=== PATIENT | male | born 1940 | race Caucasian/White ===

== ENCOUNTER 2019-06-13 18:56 | Inpatient (IN) ==
--- NOTE | 2019-06-13 19:29 | Emergency Department Note ---
Extremity Problem HPI - General Chief complaint: Extremity Problem,Nontraumatic Time Seen by Provider: 06/13/19 19:10 Source: patient Mode of arrival: ambulatory Limitations: no limitations - History of Present Illness HPI Narrative: 79-year-old male with a 2-day history of swelling in bilateral legs. He has not been able to urinate well over the last 2 days either-this is gradually been getting worse over the last month. No shortness of breath or fever. Denies CHF history but notes that he does have kidney issues-he sees nephrology here at [facility] He also complains of difficulty swallowing-he was able to eat a hamburger today but it hurts to swallow. He does not vomit anything up and is able to swallow both liquids and solids after chewing. However it does hurt significantly and so he has reduced his intake He fell on his way to the room and has a small skin tear on his left elbow He was seen a week ago on 06/07/[address] narvaez. He has not made an appoi ntment yet with Dr. Marie for his cervical spine stenosis - Related Data Home Medications Medication Instructions Recorded Confirmed amlodipine 5 mg tablet 5 mg PO QDAY 01/23/19 06/13/19 furosemide 20 mg tablet 40 mg PO QDAY 01/23/19 06/13/19 RX: Amiodarone HCl [Pacerone] 100 mg PO ONCE 06/13/19 06/13/19 Previous Rx's Medication Instructions Recorded cholecalciferol (vitamin D3) 2,000 4,000 unit PO QDAY #90 cap 06/04/18 unit capsule warfarin 4 mg tablet 4 mg PO QDAY #90 tab 06/04/18 atorvastatin 10 mg tablet 10 mg PO QDAY #90 tab 06/14/18 doxazosin 1 mg tablet 1 mg PO QHS #90 tab 06/14/18 losartan 25 mg tablet 25 mg PO QDAY #90 tab 06/14/18 Cyclobenzaprine [Flexeril] 10 mg PO TID #30 tab 06/07/19 oxyCODONE HCL [Roxicodone] 5 mg PO Q4HP PRN #30 tab 06/07/19 Allergies Allergy/AdvReac Type Severity Reaction Status Date / Time No Known Drug Allergies Allergy Verified 04/25/19 08:56 Review of Systems All systems ED: reviewed and negative except as stated. Past Medical History - Past Medical History Attestation: Yes: The following information was validated with the patient. [facility] Narrative: Family History (Last Reviewed 04/25/19 @ 09:41 by ROMEO Rodriguez) Mother Cerebrovascular accident Diabetes mellitus Arthritis Essential hypertension son Acute myocardial infarction Medical History (Last Reviewed 04/25/19 @ 09:41 by ROMEO Rodriguez) Localized edema due to fluid overload (Chronic) Gout due to renal impairment (Chronic) Vitamin D deficiency (Chronic) Secondary hyperparathyroidism of renal origin (Chronic) Anemia in stage 3 chronic kidney disease (Chronic) Benign hypertension with CKD (chronic kidney disease) stage III (Chronic) CKD (chronic kidney disease) stage 3, GFR 30-59 ml/min (Chronic) Chronic diarrhea of unknown origin (Chronic) Dyspepsia (Chronic) Atrial fibrillation by electrocardiography (Chronic) Secondary hyperparathyroidism (Chronic) Retinal edema (Chronic) History of tobacco use (Chronic) Thrombocytopenia (Chronic) Seborrheic keratosis (Chronic) Pseudophakia (Chronic) Proteinuria (Chronic) Myasthenia gravis without (acute) exacerbation (Chronic) Malignant neoplasm of skin (Chronic) Lentigo (Chronic) Hypertension, essential (Chronic) Hyperlipidemia (Chronic) Emphysema lung (Chronic) Duodenal ulcer (Chronic) Constipation (Chronic) Bradycardia (Chronic) Anemia (Chronic) Actinic keratosis (Chronic) Acute kidney injury (Resolved) Pulmonary nodule (Resolved) Past Surgical History (Last Reviewed 04/25/19 @ 09:41 by ROMEO Rodriguez) Hx of thymectomy (Acute) Hx of cataract surgery (Acute) Hx of colonoscopy (Acute) Medical history: Reports: atrial fibrillation, renal disease, other (bradycard ia) Psychiatric history: Denies: anxiety, depression Surgical history ED: Reports: other (thymus removed) - Social History smoking status: Former smoker Alcohol use: Reports: None Drug use: Reports: none. Denies: marijuana Physical Exam Gross hearing loss is noted. Conjunctive are clear sclerae white anicteric. No nasal discharge or congestion. Oropharynx is pink with dry buccal mucosa. Posterior pharynx is clear. Neck is supple without lymphadenopathy thyromegaly. Heart is regular rate and rhythm on auscultation. I do not hear a significant murmur. Lungs are basically clear to auscultation bilaterally as well. There is no respiratory distress I do not hear any wheezing rales or rhonchi. Abdomen soft mildly tender in the epigastric area as well as the periumbilical area. No peritoneal signs or guarding. He is got +2 edema to bilateral knees. He is alert oriented able to answer questions appropriately-there may be some short- term memory deficit as his son often supplements his history Small skin tear perhaps 1 cm x 1 cm at the left elbow bandaged. Does not require repair Limitations: no limitations Course Vital Signs Temperature 97.7 F 06/13/19 19:02 Pulse Rate 66 06/13/19 19:02 Respiratory Rate 16 06/13/19 19:02 Blood Pressure 95/53 06/13/19 19:02 Pulse Oximetry (%) 93 06/13/19 19:02 Temperature 98.2 F 06/13/19 22:44 Pulse Rate 65 06/13/19 22:44 Respiratory Rate 16 06/13/19 22:44 Blood Pressure 126/81 06/13/19 22:44 Pulse Oximetry (%) 98 06/13/19 22:44 Extremity Problem, Nontraumati - Lab Data Lab results reviewed: Yes I reviewed the patient's lab results. Result diagrams: 06/13/19 19:34 06/13/19 19:34 Lab Results 06/13/19 06/13/19 06/13/19 Range/Units 19:34 19:34 19:34 WBC 7.9 (4.5-11.0) K/mcL RBC 3.69 L (4.50-5.90) M/mcL Hgb 11.4 L (13.5-16.5) g/dL Hct 33.7 L (41.0-55.0) % POC Hct 33.0 L (41.0-55.0) % MCV 91.3 (80.0-100.0) fL MCH 31.0 (26.0-34.0) pg MCHC 33.9 (31.0-36.0) g/dL RDW 13.1 (11.5-14.5) % Plt Count 236 (140-440) K/mcL MPV 8.6 (7.4-10.4) fL Gran % 76.9 (38.0-78.0) % Lymph % (Auto) 10.6 L (15.5-49.0) % Jerauld % (Auto) 9.0 (1.0-12.0) % Eos % (Auto) 3.3 (0.0-7.0) % Baso % (Auto) 0.2 (0.0-2.0) % Gran # 6.1 (1.8-8.0) K/mcL Lymph # (Auto) 0.8 L (1.5-4.8) K/mcL Jerauld # (Auto) 0.7 (0.1-0.9) K/mcL Eos # (Auto) 0.3 (0.0-0.7) K/mcL Baso # (Auto) 0 (0.0-0.3) K/mcL POC Sodium 134 (133-145) mmol/L Sodium 132 L (133-145) mmol/L POC Potassium 3.7 (3.3-5.1) mmol/L Potassium 3.7 (3.3-5.1) mmol/L POC Chloride 98 (96-108) mmol/L Chloride 93 L (96-108) mmol/L Carbon Dioxide 19 L (22-30) mmol/L POC Total CO2 21 L (22-30) mmol/L Anion Gap 20.0 H (8-16) POC BUN 121 H* (8-23) mg/dl BUN 107 H* (8-23) mg/dl Creatinine 4.4 H (0.7-1.2) mg/dl POC Creatinine 5.1 H (0.7-1.2) mg/dl GFR Calculation 12 Glucose 109 H (70-105) mg/dL POC Glucose 113 H (70-105) mg/dL Calcium 8.6 (8.6-10.4) mg/dl POC WB Ioniz Calcium 1.10 L (1.16-1.32) mmol/L Magnesium 2.7 H (1.6-2.5) mg/dL Total Bilirubin 0.4 (0.0-1.0) mg/dL AST 30 (0-37) U/l ALT 55 H (0-40) U/l Alkaline Phosphatase 71 (39-117) U/L Troponin T 0.06 H* (0-0.03) ng/ml NT-Pro-B Natriuret Pep 464.7 H (0-450) pg/ml Total Protein 7.3 (5.9-8.4) gm/dL Albumin 3.5 (3.2-5.2) gm/dL Globulin 3.8 H (2.2-3.7) gm/dL Albumin/Globulin Ratio 0.9 L (1.0-2.3) Lipase 12 (7-60) U/L Urine Color Urine Appearance Urine pH (5.0-9.0) Ur Specific Benton (1.000-1.035) Urine Protein (NEG) mg/dL Urine Glucose (UA) (NEG) mg/dL Urine Ketones (NEG) mg/dL Urine Occult Blood (<0.03) mg/dL Urine Nitrate (NEG) Urine Bilirubin (NEG) mg/dL Urine Urobilinogen (NEG) mg/dL Ur Leukocyte Esterase (NEG) /uL 06/13/19 Range/Units 22:00 WBC (4.5-11.0) K/mcL RBC (4.50-5.90) M/mcL Hgb (13.5-16.5) g/dL Hct (41.0-55.0) % POC Hct (41.0-55.0) % MCV (80.0-100.0) fL MCH (26.0-34.0) pg MCHC (31.0-36.0) g/dL RDW (11.5-14.5) % Plt Count (140-440) K/mcL MPV (7.4-10.4) fL Gran % (38.0-78.0) % Lymph % (Auto) (15.5-49.0) % Jerauld % (Auto) (1.0-12.0) % Eos % (Auto) (0.0-7.0) % Baso % (Auto) (0.0-2.0) % Gran # (1.8-8.0) K/mcL Lymph # (Auto) (1.5-4.8) K/mcL Jerauld # (Auto) (0.1-0.9) K/mcL Eos # (Auto) (0.0-0.7) K/mcL Baso # (Auto) (0.0-0.3) K/mcL POC Sodium (133-145) mmol/L Sodium (133-145) mmol/L POC Potassium (3.3-5.1) mmol/L Potassium (3.3-5.1) mmol/L POC Chloride (96-108) mmol/L Chloride (96-108) mmol/L Carbon Dioxide (22-30) mmol/L POC Total CO2 (22-30) mmol/L Anion Gap (8-16) POC BUN (8-23) mg/dl BUN (8-23) mg/dl Creatinine (0.7-1.2) mg/dl POC Creatinine (0.7-1.2) mg/dl GFR Calculation Glucose (70-105) mg/dL POC Glucose (70-105) mg/dL Calcium (8.6-10.4) mg/dl POC WB Ioniz Calcium (1.16-1.32) mmol/L Magnesium (1.6-2.5) mg/dL Total Bilirubin (0.0-1.0) mg/dL AST (0-37) U/l ALT (0-40) U/l Alkaline Phosphatase (39-117) U/L Troponin T (0-0.03) ng/ml NT-Pro-B Natriuret Pep (0-450) pg/ml Total Protein (5.9-8.4) gm/dL Albumin (3.2-5.2) gm/dL Globulin (2.2-3.7) gm/dL Albumin/Globulin Ratio (1.0-2.3) Lipase (7-60) U/L Urine Color Yellow Urine Appearance Clear Urine pH 5.0 (5.0-9.0) Ur Specific Benton 1.014 (1.000-1.035) Urine Protein Neg (NEG) mg/dL Urine Glucose (UA) Negative (NEG) mg/dL Urine Ketones Neg (NEG) mg/dL Urine Occult Blood Neg (<0.03) mg/dL Urine Nitrate Neg (NEG) Urine Bilirubin Neg (NEG) mg/dL Urine Urobilinogen Neg (NEG) mg/dL Ur Leukocyte Esterase Neg (NEG) /uL - Radiology Data Radiology results reviewed: Yes I reviewed the patient's radiology results. Bladder scan shows [address] scan the abdomen pelvis shows prostatomegaly but no other significant abno rmalities Disposition Pt seen by DOG SITTER/PA only: No Clinical Impression: Prerenal acute renal failure Skin tear of elbow without complication Qualifiers: Encounter type: initial encounter Laterality: left Qualified Code(s): S51.012A - Laceration without foreign body of left elbow, initial encounter Dysphagia Qualifiers: Dysphagia type: unspecified Qualified Code(s): R13.10 - Dysphagia, unspecified Summary: New onset dysphagia over the last month as well as fluid overload in the context of chronic kidney disease. Fluid overload does appear to be mechanical as his bladder is almost 2000 mL in it. We will place a Layne and get a CT of the chest abdomen and pelvis without contrast in light of his chronic kidney disease. This will hopefully show a cause for his dysphagia and urinary retention plus give us a sense of what is going on with his kidneys. Laboratory ordered as well. Laboratory shows new onset renal failure, likely prerenal. Electrolytes do not require dialysis at this time. CT scan does not show cause for dysphasia but prostatomegaly is seen which is likely the cause of his renal failure. Discussed the case with Dr. Orozco, call center rn on-call who agreed to accept the patient in consult. I then discussed case with Dr. Corey, hospitalist who agreed to accept the patient for further care and evaluation in the hospital Disposition: Xfer As Inpt ([facility]) Condition: Fair
[2019-06-13 19:58] LABS: POC Blood Urea Nitrogen 121 mg/dl (8-23); POC CO2 21 mmol/L (22-30); POC Chloride 98 mmol/L (96-108); POC Creatinine 5.1 mg/dl (0.7-1.2); POC Glucose, Random 113 mg/dL (70-105); POC Potassium 3.7 mmol/L (3.3-5.1); POC Sodium 134 mmol/L (133-145)
[2019-06-13 20:46] LABS: Basophils # (Auto) 0 K/mcL (0.0-0.3); Basophils % (Auto) 0.2 % (0.0-2.0); Eosinophils # (Auto) 0.3 K/mcL (0.0-0.7); Eosinophils % (Auto) 3.3 % (0.0-7.0); Granulocytes % (Auto) 76.9 % (38.0-78.0); Hematocrit 33.7 % (41.0-55.0); Hemoglobin 11.4 g/dL (13.5-16.5); Lymphocytes # (Auto) 0.8 K/mcL (1.5-4.8); Lymphocytes % (Auto) 10.6 % (15.5-49.0); Mean Cell Volume 91.3 fL (80.0-100.0); Mean Corpuscular HGB Conc 33.9 g/dL (31.0-36.0); Mean Platelet Volume 8.6 fL (7.4-10.4); Monocytes # (Auto) 0.7 K/mcL (0.1-0.9); Platelet Count 236 K/mcL (140-440); RBC 3.69 M/mcL (4.50-5.90); Red Cell Distribution Width 13.1 % (11.5-14.5); WBC 7.9 K/mcL (4.5-11.0)
[2019-06-13 21:18] LABS: ALT/SGPT 55 U/l (0-40); AST/SGOT 30 U/l (0-37); Albumin 3.5 gm/dL (3.2-5.2); Albumin/Globulin Ratio 0.9 (1.0-2.3); Alkaline Phosphatase 71 U/L (39-117); Bilirubin,Total 0.4 mg/dL (0.0-1.0); Blood Urea Nitrogen 107 mg/dl (8-23); Calcium 8.6 mg/dl (8.6-10.4); Carbon Dioxide 19 mmol/L (22-30); Chloride 93 mmol/L (96-108); Globulin 3.8 gm/dL (2.2-3.7); Glomerular Filtration Rate 12; Glucose 109 mg/dL (70-105); proBNP 464.7 pg/ml (0-450)
--- NOTE | 2019-06-13 22:23 | Internal Med History&Physical ---
Medical - H&P: [facility] Patient information: Note initiated : 06/13/19 at 10:20 pm Service Date, if different from initiated Date: [] Patient: Eliseo Fairchild 79 y/o M admitted on for Swelling in legs. Chief Complaint: [] Chief complaint: Lower extremity swelling weakness History of present illness: Mr. Fairchild is a 79 year old M with a known history of chronic kidney disease/atrial fibrillation on anticoagulation presents to the ER with 5 days onset of inability to urinate along with associated nausea weight gain and lower extremity swelling. Patient endorses to a feeling of abdominal fullness and has not able to void over the last 48 hours. Symptoms has been progressing over the last month. Patient denies abdominal pain, fever or chills or bloody urine. He denies weight loss. Subsequently presents to the ER. Initial work-up was consistent with acute renal failure with a creatinine 4.4 and a BUN of 1 21. Nephrology was consulted excessively hospitalist service was requested for admission. . He denies active distress. Layne's catheter was placed With over 1000 cc urine output. At the time of evaluation patient is alert and oriented, he was able to answer most of the question and endorsed history as above. He denies recent urological procedure. He denies changes in medications. He denies NSAID intake Review of systems A 10 point review of system was performed and is negative except as discussed above Medical - H&P: PMH Medical history: Localized edema due to fluid overload (Chronic) Gout due to renal impairment (Chronic) Vitamin D deficiency (Chronic) Secondary hyperparathyroidism of renal origin (Chronic) Anemia in stage 3 chronic kidney disease (Chronic) Benign hypertension with CKD (chronic kidney disease) stage III (Chronic) CKD (chronic kidney disease) stage 3, GFR 30-59 ml/min (Chronic) Chronic diarrhea of unknown origin (Chronic) Dyspepsia (Chronic) Atrial fibrillation by electrocardiography (Chronic) Secondary hyperparathyroidism (Chronic) Retinal edema (Chronic) Seen by retinal speclialist, who wants a sleep study to ensure that this is not contributing factor to the retinal edema. Sleep study done and is negative. Will fax copy to his office. History of tobacco use (Chronic) Thrombocytopenia (Chronic) 11/04/14 Seborrheic keratosis (Chronic) 10/07/14 Pseudophakia (Chronic) 01/02/15 Bouterse Proteinuria (Chronic) 11/04/14 Myasthenia gravis without (acute) exacerbation (Chronic) 11/04/14 h/o same, s/p thymectomy Malignant neoplasm of skin (Chronic) Lentigo (Chronic) 10/07/14 Benign Hypertension, essential (Chronic) Hyperlipidemia (Chronic) Emphysema lung (Chronic) noted on ct done in 05/22 Duodenal ulcer (Chronic) 1995 Constipation (Chronic) 12/11/2013 Bradycardia (Chronic) Anemia (Chronic) 01/14/15- Honorio Actinic keratosis (Chronic) 10/07/2014 Acute kidney injury (Resolved) Due to poor water intake, vs HCTZ and losartan use. Hold HCTZ and losartan for now, recheck blood in 2 weeks, rtc in 3 weeks. Pulmonary nodule (Resolved) resolved on ct 01/22 Surgical History Hx of thymectomy (Acute) 1994 Hx of cataract surgery (Acute) 11/19/14-Right Eye Hx of colonoscopy (Acute) 2013- Dr. Denton Family History Mother Cerebrovascular accident Diabetes mellitus Arthritis Essential hypertension son Acute myocardial infarction Social History marital status: smoking status: Former smoker quit date: 10/09/03 pack-years: 10 alcohol intake frequency: does not drink substance use type: does not use additional history: Patient states chewed 1/4 can/day for 20 years. Quit chewing tobacco 2005 Medical - H&P: Meds Home Medications Medication Instructions Recorded Confirmed Type cholecalciferol (vitamin D3) 2,000 4,000 unit PO QDAY #90 cap 06/04/18 06/13/19 Rx unit capsule warfarin 4 mg tablet 4 mg PO QDAY #90 tab 06/04/18 06/13/19 Rx atorvastatin 10 mg tablet 10 mg PO QDAY #90 tab 06/14/18 06/13/19 Rx doxazosin 1 mg tablet 1 mg PO QHS #90 tab 06/14/18 06/13/19 Rx losartan 25 mg tablet 25 mg PO QDAY #90 tab 06/14/18 06/13/19 Rx amlodipine 5 mg tablet 5 mg PO QDAY 01/23/19 06/13/19 History furosemide 20 mg tablet 40 mg PO QDAY 01/23/19 06/13/19 History Cyclobenzaprine [Flexeril] 10 mg PO TID #30 tab 06/07/19 06/13/19 Rx oxyCODONE HCL [Roxicodone] 5 mg PO Q4HP PRN #30 tab 06/07/19 06/13/19 Rx Amiodarone HCl [Pacerone] 100 mg PO [facility] 06/13/19 06/14/19 History Allergies Allergy/AdvReac Type Severity Reaction Status Date / Time No Known Drug Allergies Allergy Verified 04/25/19 08:56 Medical - H&P: Exam - Constitutional Vitals: Temp Pulse Resp BP Pulse Ox 97.7 F 65 16 119/62 93 06/13/19 19:02 06/13/19 21:31 06/13/19 19:02 06/13/19 21:31 06/13/19 21:31 General appearance: no acute distress Exam: Alert and oriented Head normocephalic Neck no lymphadenopathy oral cavity dry no ear nose discharge S1-S2 occasionally irregular rhythm Chest clear to auscultation bilaterally Abdomen soft nontender Lower extremity 2+ pitting edema No joint swelling erythema Skin no suspicious lesion Psych alert cooperative exam neuro nonfocal Medical - H&P: Reslt - Labs CBC & Chem 7: 06/14/19 03:25 06/14/19 03:25 Labs: Short CBC 06/13/19 Range/Units 19:34 WBC 7.9 (4.5-11.0) K/mcL Hgb 11.4 L (13.5-16.5) g/dL Hct 33.7 L (41.0-55.0) % Plt Count 236 (140-440) K/mcL BMP 06/13/19 19:34 Sodium 132 L Potassium 3.7 Chloride 93 L Carbon Dioxide 19 L BUN 107 H* Creatinine 4.4 H Glucose 109 H Calcium 8.6 Cardiac Enzymes 06/13/19 Range/Units 19:34 Troponin T 0.06 H* (0-0.03) ng/ml Liver Function 06/13/19 Range/Units 19:34 Total Bilirubin 0.4 (0.0-1.0) mg/dL AST 30 (0-37) U/l ALT 55 H (0-40) U/l Alkaline Phosphatase 71 (39-117) U/L Albumin 3.5 (3.2-5.2) gm/dL Medical - H&P: A/P (1) Acute renal failure Current visit: Yes Status: Acute * Acute renal failure-secondary to obstructive uropathy. Layne's catheter/renal ultrasound/UA/nephrology consult. Creatinine 4.5 with BUN 121 * Obstructive uropathy-Layne's catheter placement. Likely BPH. Will need urology consult on discharge. * Volume overload secondary to obstructive uropathy-will likely correct with postobstructive diuresis. Nephrology consulted. * Atrial fibrillation currently on home dose amiodarone * Anticoagulation on Coumadin. INR therapeutic * Hypertension continue amlodipine/doxazosin, hold losartan in light of SIMON * Chronic pain on oxycodone/cyclobenzaprine * DNR * prophylaxis on Coumadin Plan * Inpatient telemetry admit * Layne's catheter * Nephrology consult * Coumadin dosing based on INR * Pre-existing medical condition management on home meds as above * Anticipate minimum of 2 midnight hospitalization
[2019-06-13] MEDS ORDERED: ACETAMINOPHEN 325 MG TABLET PO PRN (22:54)
[2019-06-13] MEDS ORDERED: ONDANSETRON 4 MG/2 ML VIAL IV PRN (22:54)
[2019-06-13] MEDS ORDERED: AMIODARONE HCL 100 MG PO SCH (22:54)
[2019-06-13] MEDS ORDERED: MELATONIN 3 MG TABLET PO PRN (22:54)
[2019-06-13] MEDS ORDERED: oxyCODONE HCL 5 MG TABLET PO PRN (22:54)
[2019-06-13 22:58] LABS: Appearance,Urine CLEAR; Bilirubin,Urine NEG (NEG); Color,Urine YELLOW; Glucose,Urine (UA) NEGATIVE (NEG); Ketones,Urine NEG (NEG); Leukocyte Esterase,Urine NEG /uL (NEG); Nitrate,Urine NEG (NEG); Protein,Urine NEG (NEG); Specific Gravity,Urine 1.014 (1.000-1.035); Urine Blood NEG mg/dL (<0.03); Urobilinogen,Urine NEG (NEG)
--- NOTE | 2019-06-14 05:29 | Cat Scan Report ---
CLINICAL INFORMATION: Abdominal pain and urinary retention. History of CHF COMPARISON: Chest CT 07/04/2018 TECHNIQUE: Enteric contrast was utilized. 80 cc of Isovue-[id number] were injected intravenously, and 50 seconds later 2.5 mm helical slices were obtained from the lung apices through the subtrochanteric regions of the femurs. Following reconstruction, 2.5 mm sagittal, coronal and axial reformatted images were processed and reviewed at multiple windows and levels. 7 mm MIP reconstructions were obtained through the lungs to optimize nodule detection.The exam was performed using radiation dose optimization techniques including, but not limited to, automated exposure control, adjustment of the mA and/or kV according to patient size and use of iterative reconstruction technique. FINDINGS: Pulmonary parenchymal windows show moderate centrilobular emphysematous changes featuring chronic bronchitis (elevated lung volumes and mild wall thickening /dilatation of the bronchi) and multiple bullae - predominantly in the upper lobes. There is moderate linear scarring in the left lower lobe - new from the chest CT over one year prior. There are no nodules or diffuse/regional infiltrates. Subsegmental atelectasis in the distal medial and posterior basilar segments of both lower lobes appreciated. There are no effusions. Mediastinal windows show the heart is normal in size are scattered calcific plaque in the coronary arteries. The noncontrasted thoracic aorta is normal. The central pulmonary arteries are mildly enlarged: the main pulmonary diameter is 3.8 cm. Findings compatible with pulmonary hypertension related to COPD. There is no adenopathy in the mediastinal hilar or axillary regions. Thyroid is unremarkable. Abdominal images show the noncontrasted gallbladder and bile ducts, liver, both adrenal glands, spleen, pancreas and aorta to be normal in size configuration and attenuation without focal lesion. 20 mm simple cyst projecting from the anterior mid right kidney is unchanged from CT one year prior 07/04/2018. There is 10 mm simple cyst in the inferior pole the right kidney which was not included on the previous study. There is no free air, free fluid or adenopathy. Pelvic images show mild prostate enlargement. Layne catheter is properly positioned within the urinary bladder which is decompressed. No gross bladder abnormality. Few sigmoid diverticuli noted, but no evidence of diverticulitis. The remainder of the colon, appendix, small bowel and stomach are normal. Bone windows show no focal osseous abnormalities. There are degenerative changes in lower lumbar spine IMPRESSION: 1. Moderate centrilobular emphysema. Scarring in the left lower lobe and subsegmental atelectasis in the medial and posterior basilar segments of both lower lobes 2. Mild central pulmonary artery enlargement compatible with pulmonary hypertension related to COPD 3. Mild prostate enlargement. Layne catheter is properly positioned with decompression of the urinary bladder Interpreted and Authenticated by: Aubrey Sibley 06/14/19
[2019-06-14] MEDS: 0.9 % SODIUM CHLORIDE 10 ML SYRINGE IV SCH ×3 (05:31→21:42)
[2019-06-14 05:49] LABS: Hematocrit 32.7 % (41.0-55.0); Hemoglobin 11.1 g/dL (13.5-16.5); Mean Cell Volume 91.9 fL (80.0-100.0); Mean Platelet Volume 8.5 fL (7.4-10.4); Platelet Count 210 K/mcL (140-440); RBC 3.56 M/mcL (4.50-5.90); Red Cell Distribution Width 12.7 % (11.5-14.5); WBC 7.1 K/mcL (4.5-11.0)
--- NOTE | 2019-06-14 05:53 | Ultrasound Report ---
CLINICAL INFORMATION: Acute renal failure COMPARISON: Abdominal ultrasound 04/17/2018 abdominal MRI 09/17/2018 FINDINGS: Both kidneys are normal in size, position and configuration: The right is 10.6 x 5 cm and the left is 10 x 5 cm. Renal parenchymal echotexture is elevated compatible with medical renal disease. Scattered simple cysts in both kidneys noted: the largest 2.1 cm mid right kidney. There is a 1.4 cm simple cyst in the mid left kidney. No solid lesion, stone or hydronephrosis. Arterial blood flow is normal and both kidneys on color Doppler. Layne catheter has decompressed urinary bladder which is grossly normal. IMPRESSION: Hyperechoic kidneys compatible with medical renal disease/advanced age Bilateral simple cysts. No solid lesions. Interpreted and Authenticated by: Aubrey Sibley 06/14/19
[2019-06-14 06:13] LABS: ALT/SGPT 45 U/l (0-40); AST/SGOT 24 U/l (0-37); Albumin/Globulin Ratio 0.8 (1.0-2.3); Alkaline Phosphatase 77 U/L (39-117); Bilirubin,Direct < 0.2 mg/dL (0.0-0.3); Bilirubin,Total 0.5 mg/dL (0.0-1.0); Blood Urea Nitrogen 102 mg/dl (8-23); Calcium 8.5 mg/dl (8.6-10.4); Carbon Dioxide 20 mmol/L (22-30); Chloride 98 mmol/L (96-108); Globulin 3.6 gm/dL (2.2-3.7); Glomerular Filtration Rate 14; Glucose 96 mg/dL (70-105); Lactate Dehydrogenase 486 U/L (94-250); Phosphorous 5.2 mg/dL (2.7-4.5); Triglycerides 66 mg/dl (<150); Uric Acid 17.5 mg/dL (2.5-8.0)
[2019-06-14 08:33] LABS: INR 3.8 (0.9-1.1); Prothrombin Time 37.2 sec (11.9-14.5)
--- NOTE | 2019-06-14 08:50 | Nephrology Consult Note ---
History of Present Illness - Reason for Consult Patient information: Note initiated : 06/14/19 at 8:48 am Service Date, if different from initiated Date: [] Patient: Eliseo Fairchild 79 y/o M admitted on 06/13/19 for Swelling in legs. Chief Complaint: [] acute renal failure Requesting physician: Ge Mccauley - Chief Complaint Decreased urine output, lower extremity swelling - History of Present Illness 79-year-old male with CKD stage III baseline creatinine 1.9 EGFR 33 as of January [address] Martinez, COPD, atrial fibrillation on anticoagulation with warfarin, hypertension, presented with 2 days decreased urine output and wor sening lower extremity swelling. Denies: Shortness of breath, nausea, vomiting, hiccups, confusion. He continued to take his home medications until yesterday when he dropped the bottles on the floor and the pills got mixed up. Son present at the bedside throughout the visit Review of Systems Constitutional: no chills, no fever(s) Cardiovascular: edema, irregular heart rhythm, no chest pain, no dyspnea Respiratory: no dyspnea Gastrointestinal: no change in bowel habits, no nausea, no vomiting Genitourinary: difficulty urinating, other (Decreased urine output) Neurological: no abnormal speech, no confusion Psychiatric: no confusion Past History Past medical history: Medical History (Last Reviewed 04/25/19 @ 09:41 by ROMEO Rodriguez) Localized edema due to fluid overload (Chronic) Gout due to renal impairment (Chronic) Vitamin D deficiency (Chronic) Secondary hyperparathyroidism of renal origin (Chronic) Anemia in stage 3 chronic kidney disease (Chronic) Benign hypertension with CKD (chronic kidney disease) stage III (Chronic) CKD (chronic kidney disease) stage 3, GFR 30-59 ml/min (Chronic) Chronic diarrhea of unknown origin (Chronic) Dyspepsia (Chronic) Atrial fibrillation by electrocardiography (Chronic) Secondary hyperparathyroidism (Chronic) Retinal edema (Chronic) History of tobacco use (Chronic) Thrombocytopenia (Chronic) Seborrheic keratosis (Chronic) Pseudophakia (Chronic) Proteinuria (Chronic) Myasthenia gravis without (acute) exacerbation (Chronic) Malignant neoplasm of skin (Chronic) Lentigo (Chronic) Hypertension, essential (Chronic) Hyperlipidemia (Chronic) Emphysema lung (Chronic) Duodenal ulcer (Chronic) Constipation (Chronic) Bradycardia (Chronic) Anemia (Chronic) Actinic keratosis (Chronic) Acute kidney injury (Resolved) Pulmonary nodule (Resolved) Past surgical history: Past Surgical History (Last Reviewed 06/14/19 @ 08:54 by Swetha Orozco MD) Hx of thymectomy (Acute) Hx of cataract surgery (Acute) Hx of colonoscopy (Acute) Past family history: Family History (Last Reviewed 04/25/19 @ 09:41 by ROMEO Rodriguez) Mother Cerebrovascular accident Diabetes mellitus Arthritis Essential hypertension son Acute myocardial infarction Past social history: Social History No Social History Section defined Medications and Allergies Home Medications Medication Instructions Recorded Confirmed Type cholecalciferol (vitamin D3) 2,000 4,000 unit PO QDAY #90 cap 06/04/18 06/13/19 Rx unit capsule warfarin 4 mg tablet 4 mg PO QDAY #90 tab 06/04/18 06/13/19 Rx atorvastatin 10 mg tablet 10 mg PO QDAY #90 tab 06/14/18 06/13/19 Rx doxazosin 1 mg tablet 1 mg PO QHS #90 tab 06/14/18 06/13/19 Rx losartan 25 mg tablet 25 mg PO QDAY #90 tab 06/14/18 06/13/19 Rx amlodipine 5 mg tablet 5 mg PO QDAY 01/23/19 06/13/19 History furosemide 20 mg tablet 40 mg PO QDAY 01/23/19 06/13/19 History Cyclobenzaprine [Flexeril] 10 mg PO TID #30 tab 06/07/19 06/13/19 Rx oxyCODONE HCL [Roxicodone] 5 mg PO Q4HP PRN #30 tab 06/07/19 06/13/19 Rx Amiodarone HCl [Pacerone] 100 mg PO QAMCC 06/13/19 06/14/19 History Allergies Allergy/AdvReac Type Severity Reaction Status Date / Time No Known Drug Allergies Allergy Verified 04/25/19 08:56 Exam - Vital Signs Vital signs: Temp Pulse Resp BP Pulse Ox 36.4 C 58 L 14 115/56 91 06/14/19 02:54 06/14/19 04:00 06/14/19 04:00 06/14/19 04:00 06/14/19 04:00 - General Appearance General appearance: well-developed, well-nourished, appears started age EENT: ATNC Neck: no JVD Cardiology: no rub, no edema, normal S1, normal S2 Gastrointestinal: normoactive bowel sounds, no tenderness Integumentary: warm and dry Neurologic: alert and oriented x3 Psychiatric: mood/affect appropriate Results - Lab Results 06/14/19 03:25 06/14/19 03:25 Most recent lab results Calcium 8.5 mg/dl (8.6-10.4) L 06/14/19 03:25 Phosphorus 5.2 mg/dL (2.7-4.5) H 06/14/19 03:25 Magnesium 2.6 mg/dL (1.6-2.5) H 06/14/19 03:25 Assessment and Plan (1) Acute kidney injury superimposed on CKD Status: Acute Priority: High (2) Metabolic acidosis Status: Acute Priority: Medium - Narrative A/P Narrative: Baseline creatinine 1.9, estimated GFR 33 as of January 2019. The patient presented on 06/13/2019 with a serum creatinine of 4.4 (on yrabp-ch-gitx 5.1). SIMON in the setting of obstructive uropathy He complained of suprapubic tenderness and on bladder scan was noted to have a distended/full bladder. When Layne was placed there was approximately 1 L urine return. By the time he had a CT of his abdomen and pelvis his bladder was decompressed. There is a note of mild prostate enlargement. ua this admission bland. Prior negative work-up included serum and urine immunofixation, SMITH screen, ANCA, anti-GBM, C3-C4 within normal limits, nonreactive hepatitis antibody, B antigen and antibody, C antibody, HIV. Free kappa lambda ratio was 1.9 so slightly elevated but this was in the setting of CKD. He presented with a serum bicarbonate of 19, within the limitation of not having a blood gas, this is metabolic acidosis in the setting of renal disease. Serum bicarbonate 20 this morning. No intervention. I expect that this will resolve with resolution of the SIMON. Noted mild hyperphosphatemia. No intervention in the setting of SIMON. Recommend leaving the Layne in place for a total of 24 hours after which he can have a voiding trial. Recommend checking postvoid residual after the first time he voids. Match I's and O's to prevent pre-renal SIMON if the patient has postobstructive diuresis. I encouraged the patient to have about 80 ounces of fluids by mouth today. He can have fruit juice. follow up with Dr. Martinez after discharge. Dr. Marrufo - Nephrology is branch operation evaluation manager this weekend
[2019-06-14 08:55] LABS: Eosinophils % (Manual) 5 % (0-7); Lymphocytes % 7 % (15-49); Monocytes % (Manual) 11 % (1-12); Platelet Estimate NORMAL (NORMAL); RBC Morphology NORMAL (NORMAL); Segmented Neutrophils % 77 % (38-78)
[2019-06-14] MEDS: DOCUSATE SODIUM 100 MG CAPSULE PO SCH ×2 (10:11→21:42)
[2019-06-14] MEDS: amLODIPine 5 MG TABLET PO SCH (10:11)
[2019-06-14] MEDS: ATORVASTATIN 20 MG TABLET PO SCH (10:12)
[2019-06-14] MEDS: MULTIVIT,THER IRON,CA,FA & MIN 1 TABLET PO SCH (10:12)
[2019-06-14] MEDS: AMIODARONE HCL 200 MG TABLET PO SCH (10:12)
[2019-06-14] MEDS: CYCLOBENZAPRINE 10 MG TABLET PO SCH ×3 (10:12→21:42)
--- NOTE | 2019-06-14 10:24 | Internal Med Progress Note ---
Medical - PN: Subj Patient information: Note initiated : 06/14/19 at 10:21 am Service Date, if different from initiated Date: [] Patient: Eliseo Fairchild 79 y/o M admitted on 06/13/19 for Swelling in legs. Chief Complaint: [] Interval history: Mr. Fairchild is a 79 year old M with a known history of chronic kidney dis ease/atrial fibrillation on anticoagulation presents to the ER with 5 days onset of inability to urinate along with associated nausea weight gain and lower extremity swelling. Patient endorses to a feeling of abdominal fullness and has not able to void over the last 48 hours. Symptoms has been progressing over the last month. Patient denies abdominal pain, fever or chills or bloody urine. He denies weight loss. Subsequently presents to the ER. Initial work-up was consistent with acute staci l failure with a creatinine 4.4 and a BUN of 1 21. Nephrology was consulted excessively hospitalist service was requested for admission. . He denies active distress. Layne's catheter was placed With over 1000 cc urine output. At the time of evaluation patient is alert and oriented, he was able to answer most of the question and endorsed history as above. He denies recent urological procedure. He denies changes in medications. He denies NSAID intake 06/14-patient doing well. Diuresing well. Nephrology on board. Denies shortness of breath. Low risk lymphedema much improved. No overnight fever chills or concerns per staff. INR therapeutic at 3.8. Creatinine downtrending 3.9 - Constitutional Vitals: Vital Signs Temp Pulse Resp BP Pulse Ox 97.9 F 64 16 121/96 95 06/14/19 08:00 06/14/19 08:00 06/14/19 08:00 06/14/19 08:00 06/14/19 08:00 Period Temp Pulse Resp BP Sys/Nicholson Pulse Ox Last 24 Hr 97.6 F-98.2 F 58-66 14-16 95-126/53-96 90-98 Intake and Output 06/13/19 06/14/19 06/14/19 21:59 05:59 13:59 Intake Total 240 Output Total 1000 1425 Balance -1000 -1425 240 Weight 170 lb 164 lb 8 oz Intake & Output: Intake & Output 06/13/19 06/14/19 06/14/19 21:59 05:59 13:59 Intake Total 240 Output Total 1000 1425 Balance -1000 -1425 240 Weight 170 lb 164 lb 8 oz Intake: Oral 240 Output: Urine Catheter Amount 1425 Void Amount 1000 Uretheral (Layne) 1000 Other: Meal Breakfast Percent of Meal Consumed 75% Feeding Ability Assist with Tray Set Up Urine Appearance Clear Uretheral (Layne) Clear Clear Urine Color Bright Yellow Uretheral (Layne) Dark Yellow Bright Yellow Urine Odor Normal Uretheral (Layne) Normal General appearance: no acute distress Exam: Alert oriented Nonlabored breathing Nondistended nontender abdomen Edema improved lower extremity Anxiety Medical - PN: Obj Da - Labs CBC & Chem 7: 06/14/19 03:25 06/14/19 03:25 Labs: Abnormal Lab Results 06/14/19 06/14/19 06/14/19 07:25 03:25 03:25 RBC 3.56 L Hgb 11.1 L Hct 32.7 L POC Hct Lymph % (Auto) Lymph # (Auto) Lymphocytes % 7 L PT 37.2 H INR 3.8 H Sodium Chloride Carbon Dioxide 20 L POC Total CO2 Anion Gap 18.0 H POC BUN BUN 102 H* Creatinine 3.9 H POC Creatinine Glucose POC Glucose Uric Acid 17.5 H Calcium 8.5 L POC WB Ioniz Calcium Phosphorus 5.2 H Magnesium 2.6 H ALT 45 H Lactate Dehydrogenase 486 H Troponin T NT-Pro-B Natriuret Pep Albumin 3.0 L Globulin Albumin/Globulin Ratio 0.8 L 06/13/19 06/13/19 06/13/19 19:34 19:34 19:34 RBC 3.69 L Hgb 11.4 L Hct 33.7 L POC Hct 33.0 L Lymph % (Auto) 10.6 L Lymph # (Auto) 0.8 L Lymphocytes % PT INR Sodium 132 L Chloride 93 L Carbon Dioxide 19 L POC Total CO2 21 L Anion Gap 20.0 H POC BUN 121 H* BUN 107 H* Creatinine 4.4 H POC Creatinine 5.1 H Glucose 109 H POC Glucose 113 H Uric Acid Calcium POC WB Ioniz Calcium 1.10 L Phosphorus Magnesium 2.7 H ALT 55 H Lactate Dehydrogenase Troponin T 0.06 H* NT-Pro-B Natriuret Pep 464.7 H Albumin Globulin 3.8 H Albumin/Globulin Ratio 0.9 L Meds: Medications Acetaminophen (Tylenol) 650 mg PO Q4-6HP PRN PRN Reason: PAIN/FEVER > 101 Amiodarone HCl (Cordarone) 100 mg PO QAMCC [facility] Last Admin: 06/14/19 10:12 Dose: 100 mg Documented by: Amlodipine Besylate (Norvasc) 5 mg PO QDAY [facility] Last Admin: 06/14/19 10:11 Dose: 5 mg Documented by: Atorvastatin Calcium (Lipitor) 10 mg PO QDAY [facility] Last Admin: 06/14/19 10:12 Dose: 10 mg Documented by: Cyclobenzaprine HCl (Flexeril) 10 mg PO TID [facility] Last Admin: 06/14/19 10:12 Dose: 10 mg Documented by: Docusate Sodium (Colace) 100 mg PO BID [facility] Last Admin: 06/14/19 10:11 Dose: 100 mg Documented by: [facility] ([facility]) [facility] Iron Carb/Multivit/Property Management Bookkeeper/Folic Acid (Multivitamin W/Minerals) 1 tab PO DAILY [facility] Last Admin: 06/14/19 10:12 Dose: 1 tab Documented by: Melatonin (Melatonin 3mg Tablet) 3 mg PO HSP PRN PRN Reason: Insomnia Ondansetron HCl (Zofran) 4 mg IV Q4-6HP PRN PRN Reason: Nausea And Vomiting Oxycodone HCl (Roxicodone) 5 mg PO Q4HP PRN PRN Reason: Neck pain Senna/Docusate Sodium (Senna Plus Tablet) 1 tab PO [facility] Sodium Chloride (Saline Flush) 10 ml IV Q8 [facility] Last Admin: 06/14/19 05:31 Dose: 10 ml Documented by: Warfarin Sodium (Coumadin Per Pharmacy) 1 order PO UD [facility] Medical - PN: A/P - Time Spent With Patient Total time spent is greater than 50% in coordination of care (as documented) at patient's floor/unit and/or counseling patient: 25 - 35 minutes (1) Acute renal failure Status: Acute Assessment and plan: * Acute renal failure-secondary to obstructive uropathy. Layne's catheter/renal ultrasound/UA/nephrology consult. Creatinine 4.5 with BUN 121 * Obstructive uropathy-Layne's catheter placement. Likely BPH. Will need urology consult on discharge. * Volume overload secondary to obstructive uropathy-will likely correct with postobstructive diuresis. Nephrology consulted. * Atrial fibrillation currently on home dose amiodarone * Anticoagulation on Coumadin. INR 3.8 * Hypertension stable on amlodipine/doxazosin, hold losartan in light of SIMON. Systolics around 120 * Chronic pain continue on home dose oxycodone/cyclobenzaprine * History of spinal stenosis-patient is scheduled to follow-up with spinal surgeon as outpatient. * DNR * prophylaxis on Coumadin Plan * Layne's catheter * Urology follow-up as outpatient * Coumadin dosing based on INR * Pre-existing medical condition management on home meds as above * PT OT/nutrition support * Discharge planning per case management Current Visit: Yes Medical - PN: Qual - VTE Deep Vein Thrombosis/Pulmonary Embolism Present on Admission: No
--- NOTE | 2019-06-14 14:01 | Internal Med Progress Note ---
Medical - PN: Subj Patient information: Note initiated : 06/14/19 at 1:53 pm Service Date, if different from initiated Date: [] Patient: Eliseo Fairchild 79 y/o M admitted on 06/13/19 for Swelling in legs. Chief Complaint: [] Interval history: Mr. Fairchild is a 79 year old M with a known history of chronic kidney dise ase/atrial fibrillation on anticoagulation presents to the ER with 5 days onset of inability to urinate along with associated nausea weight gain and lower extremity swelling. Patient endorses to a feeling of abdominal fullness and has not able to void over the last 48 hours. Symptoms has been progressing over the last month. Patient denies abdominal pain, fever or chills or bloody urine. He denies weight loss. Subsequently presents to the ER. Initial work-up was consistent with acute renal failure with a creatinine 4.4 and a BUN of 1 21. Nephrology was consulted excessively hospitalist service was requested for admission. . He denies active distress. Layne's catheter was placed With over 1000 cc urine output. At the time of evaluation patient is alert and oriented, he was able to answer most of the question and endorsed history as above. He denies recent urological procedure. He denies changes in medications. He denies NSAID intake 06/14-patient doing well. Diuresing well. Nephrology on board. Denies shortness of breath. Low risk lymphedema much improved. No overnight fever chills or concerns per staff. INR therapeutic at 3.8. Creatinine downtrending 3.9 06/15 - Constitutional Vitals: Vital Signs Temp Pulse Resp BP Pulse Ox 97.7 F 53 L 17 112/56 92 06/14/19 12:00 06/14/19 12:00 06/14/19 12:00 06/14/19 12:00 06/14/19 12:00 Period Temp Pulse Resp BP Sys/Nicholson Pulse Ox Last 24 Hr 97.6 F-98.2 F 53-66 14-17 95-126/53-96 90-98 Intake and Output 06/13/19 06/14/19 06/14/19 21:59 05:59 13:59 Intake Total 600 Output Total 1000 1425 Balance -1000 -1425 600 Weight 77.111 kg 74.616 kg 74.616 kg Patient Weight 06/15/19 05:59 Weight 74.616 kg Intake & Output: Intake & Output 06/13/19 06/14/19 06/14/19 21:59 05:59 13:59 Intake Total 600 Output Total 1000 1425 Balance -1000 -1425 600 Weight 77.111 kg 74.616 kg 74.616 kg Intake: Oral 600 Output: Urine Catheter Amount 1425 Void Amount 1000 Uretheral (Layne) 1000 Other: Meal Lunch Percent of Meal Consumed 100% Feeding Ability Independent Urine Appearance Clear Uretheral (Layne) Clear Clear Urine Color Bright Yellow Uretheral (Layne) Dark Yellow Bright Yellow Urine Odor Normal Uretheral (Layne) Normal Exam: General: Alert, Awake, No acute Distress Eyes/N/T: EOMI, Head/Neck: neck supple, CV: RRR, No murmurs, Pulm: Clear b/l, no wheezing/rhonchi/rales Abd: soft, nontender, +BS x4 Ext: no clubbing/cyanosis, b/l LE edema Neuro: Alert, no focal deficits, moves all extremities, Skin: warm/dry Medical - PN: Obj Da - Labs CBC & Chem 7: 06/14/19 03:25 06/14/19 03:25 Labs: Abnormal Lab Results 06/14/19 06/14/19 06/14/19 07:25 03:25 03:25 RBC 3.56 L Hgb 11.1 L Hct 32.7 L POC Hct Lymph % (Auto) Lymph # (Auto) Lymphocytes % 7 L PT 37.2 H INR 3.8 H Sodium Chloride Carbon Dioxide 20 L POC Total CO2 Anion Gap 18.0 H POC BUN BUN 102 H* Creatinine 3.9 H POC Creatinine Glucose POC Glucose Uric Acid 17.5 H Calcium 8.5 L POC WB Ioniz Calcium Phosphorus 5.2 H Magnesium 2.6 H ALT 45 H Lactate Dehydrogenase 486 H Troponin T NT-Pro-B Natriuret Pep Albumin 3.0 L Globulin Albumin/Globulin Ratio 0.8 L 06/13/19 06/13/19 06/13/19 19:34 19:34 19:34 RBC 3.69 L Hgb 11.4 L Hct 33.7 L POC Hct 33.0 L Lymph % (Auto) 10.6 L Lymph # (Auto) 0.8 L Lymphocytes % PT INR Sodium 132 L Chloride 93 L Carbon Dioxide 19 L POC Total CO2 21 L Anion Gap 20.0 H POC BUN 121 H* BUN 107 H* Creatinine 4.4 H POC Creatinine 5.1 H Glucose 109 H POC Glucose 113 H Uric Acid Calcium POC WB Ioniz Calcium 1.10 L Phosphorus Magnesium 2.7 H ALT 55 H Lactate Dehydrogenase Troponin T 0.06 H* NT-Pro-B Natriuret Pep 464.7 H Albumin Globulin 3.8 H Albumin/Globulin Ratio 0.9 L Meds: Medications Acetaminophen (Tylenol) 650 mg PO Q4-6HP PRN PRN Reason: PAIN/FEVER > 101 [facility]) [facility] Last Admin: 06/14/19 10:12 Dose: 100 mg Documented by: Amlodipine Besylate (Norvasc) 5 mg PO QDAY [facility] Last Admin: 06/14/19 10:11 Dose: 5 mg Documented by: Atorvastatin Calcium (Lipitor) 10 mg PO QDAY [facility] Last Admin: 06/14/19 10:12 Dose: 10 mg Documented by: Cyclobenzaprine HCl (Flexeril) 10 mg PO TID [facility] Last Admin: 06/14/19 10:12 Dose: 10 mg Documented by: Docusate Sodium (Colace) 100 mg PO BID [facility] Last Admin: 06/14/19 10:11 Dose: 100 mg Documented by: [facility] ([facility]) [facility] Carb/Multivit/[employer] Black [employer] White/Folic Acid (Multivitamin W/Minerals) 1 tab PO DAILY [facility] Last Admin: 06/14/19 10:12 Dose: 1 tab Documented by: Melatonin (Melatonin 3mg Tablet) 3 mg PO HSP PRN PRN Reason: Insomnia Ondansetron HCl (Zofran) 4 mg IV Q4-6HP PRN PRN Reason: Nausea And Vomiting Oxycodone HCl (Roxicodone) 5 mg PO Q4HP PRN PRN Reason: Neck pain Senna/Docusate Sodium (Senna Plus Tablet) 1 tab PO [facility] Sodium Chloride (Saline Flush) 10 ml IV Q8 [facility] Last Admin: 06/14/19 05:31 Dose: 10 ml Documented by: Warfarin Sodium (Coumadin Per Pharmacy) 1 order PO [facility] Medical - PN: A/P - Time Spent With Patient Total time spent is greater than 50% in coordination of care (as documented) at patient's floor/unit and/or counseling patient: - Narrative A/P Narrative: A: *SIMON CKD IIIb: 2/2 obstructive uropathy. -Layne in place, Cr improving -renal ultrasound on acute path *Obstructive uropathy: Layne's catheter placement. Likely BPH. Will need urology consult on discharge. *Volume overload secondary to obstructive uropathy-will likely correct with postobstructive diuresis. *Atrial fibrillation: currently on home dose amiodarone *Coagulopathy: 2/2 Coumadin. INR 3.8 *HTN: on amlodipine/doxazosin/losartan *Chronic pain: continue on home dose oxycodone/cyclobenzaprine *h/o spinal stenosis-patient is scheduled to follow-up with spinal surgeon as outpatient. Plan: -maintain Layne -Nephrology following -Urology follow-up as outpatient -cont home CCB/Doxazosin, hold ARB for SIMON -PT OT/nutrition support -Discharge planning per case management -ppx: warfarin per pharmacy DNR Medical - PN: Qual - VTE Deep Vein Thrombosis/Pulmonary Embolism Present on Admission: No
[2019-06-14] MEDS ORDERED: DOXAZOSIN 1 MG TABLET PO SCH (21:00)
[2019-06-14] MEDS: SENNOSIDES/DOCUSATE SODIUM 1 TAB TABLET PO SCH (21:42)
[2019-06-15 05:37] LABS: INR 2.8 (0.9-1.1)
[2019-06-15 05:43] LABS: Hematocrit 31.8 % (41.0-55.0); Hemoglobin 10.9 g/dL (13.5-16.5); Mean Cell Volume 90.8 fL (80.0-100.0); Mean Corpuscular HGB Conc 34.3 g/dL (31.0-36.0); Mean Platelet Volume 8.2 fL (7.4-10.4); Platelet Count 229 K/mcL (140-440); Red Cell Distribution Width 13.1 % (11.5-14.5); WBC 5.6 K/mcL (4.5-11.0)
[2019-06-15] MEDS: 0.9 % SODIUM CHLORIDE 10 ML SYRINGE IV SCH ×3 (05:51→21:08)
[2019-06-15 06:08] LABS: ALT/SGPT 36 U/l (0-40); AST/SGOT 18 U/l (0-37); Albumin 2.9 gm/dL (3.2-5.2); Albumin/Globulin Ratio 0.8 (1.0-2.3); Alkaline Phosphatase 70 U/L (39-117); Bilirubin,Direct < 0.2 mg/dL (0.0-0.3); Bilirubin,Total 0.4 mg/dL (0.0-1.0); Blood Urea Nitrogen 78 mg/dl (8-23); Calcium 8.7 mg/dl (8.6-10.4); Carbon Dioxide 24 mmol/L (22-30); Chloride 103 mmol/L (96-108); Globulin 3.6 gm/dL (2.2-3.7); Glomerular Filtration Rate 24; Glucose 104 mg/dL (70-105); Lactate Dehydrogenase 409 U/L (94-250); Phosphorous 3.8 mg/dL (2.7-4.5); Triglycerides 64 mg/dl (<150); Uric Acid 15.4 mg/dL (2.5-8.0)
[2019-06-15 07:23] LABS: Eosinophils % (Manual) 4 % (0-7); Lymphocytes % 11 % (15-49); Monocytes % (Manual) 7 % (1-12); Platelet Estimate NORMAL (NORMAL); RBC Morphology NORMAL (NORMAL); Segmented Neutrophils % 78 % (38-78)
--- NOTE | 2019-06-15 07:33 | Internal Med Progress Note ---
Medical - PN: Subj Patient information: Note initiated : 06/15/19 at 7:28 am Service Date, if different from initiated Date: [] Patient: Eliseo Fairchild 79 y/o M admitted on 06/13/19 for Swelling in legs. Chief Complaint: [] Interval history: Mr. Fairchild is a 79 year old M with a known history of chronic kidney dise ase/atrial fibrillation on anticoagulation presents to the ER with 5 days onset of inability to urinate along with associated nausea weight gain and lower extremity swelling. Patient endorses to a feeling of abdominal fullness and has not able to void over the last 48 hours. Symptoms has been progressing over the last month. Patient denies abdominal pain, fever or chills or bloody urine. He denies weight loss. Subsequently presents to the ER. Initial work-up was consistent with acute renal failure with a creatinine 4.4 and a BUN of 1 21. Nephrology was consulted excessively hospitalist service was requested for admission. . He denies active distress. Layne's catheter was placed With over 1000 cc urine output. At the time of evaluation patient is alert and oriented, he was able to answer most of the question and endorsed history as above. He denies recent urological procedure. He denies changes in medications. He denies NSAID intake 06/14-patient doing well. Diuresing well. Nephrology on board. Denies shortness of breath. Low risk lymphedema much improved. No overnight fever chills or concerns per staff. INR therapeutic at 3.8. Creatinine downtrending 3.9 06/15 Accidentally pulled Layne out this morning. Has not voided in the last 4 hours since Layne pulled. Bladder scan for greater than 200. Was agitated this morning and want to go home. Otherwise no overnight events. No new complaints. His son reports dementia-like symptoms that have been progressing over the past year. Review of Systems: denies headache/fever/chills/nausea/vomiting/chest or abdominal pain/cough/dyspnea/diarrhea. Otherwise see above. - Constitutional Vitals: Vital Signs Temp Pulse Resp BP Pulse Ox 98 F 48 L 16 120/58 94 06/15/19 04:00 06/15/19 04:00 06/15/19 04:00 06/15/19 04:00 06/15/19 04:00 Period Temp Pulse Resp BP Sys/Nicholson Pulse Ox Last 24 Hr 97.7 F-98.2 F 48-64 16-20 112-128/49-96 92-96 Intake and Output 06/14/19 06/15/19 06/15/19 21:59 05:59 13:59 Output Total 1325 800 Balance -1325 -800 Weight 73.573 kg Intake & Output: Intake & Output 06/14/19 06/15/19 06/15/19 21:59 05:59 13:59 Output Total 1325 800 Balance -1325 -800 Weight 73.573 kg Output: Urine Catheter Amount 1325 800 Other: Meal Dinner Percent of Meal Consumed 50% Urine Appearance Clear Hematuria Uretheral (Layne) Clear Urine Color Light Valentina Light Valentina Uretheral (Layne) Light Valentina Urine Odor Normal Stool Size Moderate Small Stool Color Brown Brown Stool Consistency Normal for Patient Normal for Patient Exam: General: Alert, Awake, No acute Distress Eyes/N/T: EOMI, Head/Neck: neck supple, CV: RRR, No murmurs, Pulm: Clear b/l, no wheezing/rhonchi/rales Abd: soft, nontender, +BS x4 Ext: no clubbing/cyanosis, b/l LE edema Neuro: Alert, no focal deficits, moves all extremities, Skin: warm/dry Medical - PN: Obj Da - Labs CBC & Chem 7: 06/15/19 04:05 06/15/19 04:05 Labs: Abnormal Lab Results 06/15/19 06/15/19 06/15/19 04:05 04:05 04:05 RBC 3.50 L Hgb 10.9 L Hct 31.8 L POC Hct Lymph % (Auto) Lymph # (Auto) Lymphocytes % 11 L PT 29.0 H INR 2.8 H Sodium Chloride Carbon Dioxide POC Total CO2 Anion Gap POC BUN BUN 78 H Creatinine 2.4 H POC Creatinine Glucose POC Glucose Uric Acid 15.4 H Calcium POC WB Ioniz Calcium Phosphorus Magnesium 2.6 H ALT Lactate Dehydrogenase 409 H Troponin T NT-Pro-B Natriuret Pep Albumin 2.9 L Globulin Albumin/Globulin Ratio 0.8 L 06/14/19 06/14/19 06/14/19 07:25 03:25 03:25 RBC 3.56 L Hgb 11.1 L Hct 32.7 L POC Hct Lymph % (Auto) Lymph # (Auto) Lymphocytes % 7 L PT 37.2 H INR 3.8 H Sodium Chloride Carbon Dioxide 20 L POC Total CO2 Anion Gap 18.0 H POC BUN BUN 102 H* Creatinine 3.9 H POC Creatinine Glucose POC Glucose Uric Acid 17.5 H Calcium 8.5 L POC WB Ioniz Calcium Phosphorus 5.2 H Magnesium 2.6 H ALT 45 H Lactate Dehydrogenase 486 H Troponin T NT-Pro-B Natriuret Pep Albumin 3.0 L Globulin Albumin/Globulin Ratio 0.8 L 06/13/19 06/13/19 06/13/19 19:34 19:34 19:34 RBC 3.69 L Hgb 11.4 L Hct 33.7 L POC Hct 33.0 L Lymph % (Auto) 10.6 L Lymph # (Auto) 0.8 L Lymphocytes % PT INR Sodium 132 L Chloride 93 L Carbon Dioxide 19 L POC Total CO2 21 L Anion Gap 20.0 H POC BUN 121 H* BUN 107 H* Creatinine 4.4 H POC Creatinine 5.1 H Glucose 109 H POC Glucose 113 H Uric Acid Calcium POC WB Ioniz Calcium 1.10 L Phosphorus Magnesium 2.7 H ALT 55 H Lactate Dehydrogenase Troponin T 0.06 H* NT-Pro-B Natriuret Pep 464.7 H Albumin Globulin 3.8 H Albumin/Globulin Ratio 0.9 L Meds: Medications Acetaminophen (Tylenol) 650 mg PO Q4-6HP PRN PRN Reason: PAIN/FEVER > 101 Amiodarone HCl (Cordarone) 100 mg PO [facility] Last Admin: 06/14/19 10:12 Dose: 100 mg Documented by: Amlodipine Besylate (Norvasc) 5 mg PO QDAY [facility] Last Admin: 06/14/19 10:11 Dose: 5 mg Documented by: Atorvastatin Calcium (Lipitor) 10 mg PO QDAY [facility] Last Admin: 06/14/19 10:12 Dose: 10 mg Documented by: Cyclobenzaprine HCl (Flexeril) 10 mg PO TID [facility] Last Admin: 06/14/19 21:42 Dose: 10 mg Documented by: Docusate Sodium (Colace) 100 mg PO BID [facility] Last Admin: 06/14/19 21:42 Dose: Not Given Documented by: Doxazosin Mesylate (Cardura) 1 mg PO QHS [facility] Last Admin: 06/14/19 21:42 Dose: 1 mg Documented by: Iron Carb/Multivit/Morris/Folic Acid (Multivitamin W/Minerals) 1 tab PO DAILY [facility] Last Admin: 06/14/19 10:12 Dose: 1 tab Documented by: Melatonin (Melatonin 3mg Tablet) 3 mg PO HSP PRN PRN Reason: Insomnia Last Admin: 06/15/19 01:45 Dose: 3 mg Documented by: Ondansetron HCl (Zofran) 4 mg IV Q4-6HP PRN PRN Reason: Nausea And Vomiting Oxycodone HCl (Roxicodone) 5 mg PO Q4HP PRN PRN Reason: Neck pain Senna/Docusate Sodium (Senna Plus Tablet) 1 tab PO HS [facility] Last Admin: 06/14/19 21:42 Dose: Not Given Documented by: Sodium Chloride (Saline Flush) 10 ml IV Q8 [facility] Last Admin: 06/15/19 05:51 Dose: 10 ml Documented by: Warfarin Sodium (Coumadin Per Pharmacy) 1 order PO UD [facility] Medical - PN: A/P - Time Spent With Patient Total time spent is greater than 50% in coordination of care (as documented) at patient's floor/unit and/or counseling patient: - Narrative A/P Narrative: A: *SIMON on CKD IIIb: 2/2 obstructive uropathy. -Layne in place -Cr improving -renal ultrasound on acute path *Obstructive uropathy: Layne's catheter placement. Likely BPH. Will need urology consult on discharge. *Volume overload secondary to obstructive uropathy-will likely correct with postobstructive diuresis. *Atrial fibrillation: currently on home dose amiodarone and warfarin *Coagulopathy: 2/2 Coumadin. INR 3.8 on admit *HTN: on amlodipine/doxazosin/losartan *Chronic pain: continue on home dose oxycodone/cyclobenzaprine *h/o spinal stenosis-patient is scheduled to follow-up with spinal surgeon as outpatient. *Dementia: per family history Plan: -maintain Layne -Nephrology following -Urology follow-up as outpatient -cont home CCB/Doxazosin, hold ARB for SIMON -PT OT/nutrition support -Discharge planning per case management -ppx: warfarin per pharmacy DNR Medical - PN: Qual - VTE Deep Vein Thrombosis/Pulmonary Embolism Present on Admission: No
[2019-06-15] MEDS ORDERED: 0.9 % SODIUM CHLORIDE 1,000 ML IV SCH (07:45)
[2019-06-15] MEDS: AMIODARONE HCL 200 MG TABLET PO SCH ×2 (08:46→15:09)
[2019-06-15] MEDS: CYCLOBENZAPRINE 10 MG TABLET PO SCH ×3 (08:47→21:07)
[2019-06-15] MEDS: ATORVASTATIN 20 MG TABLET PO SCH (08:47)
[2019-06-15] MEDS: amLODIPine 5 MG TABLET PO SCH (08:47)
[2019-06-15] MEDS ORDERED: OLANZapine 2.5 MG TABLET PO ONE (09:12)
[2019-06-15] MEDS: MULTIVIT,THER IRON,CA,FA & MIN 1 TABLET PO SCH (09:43)
[2019-06-15] MEDS: DOCUSATE SODIUM 100 MG CAPSULE PO SCH ×2 (09:43→21:07)
--- NOTE | 2019-06-15 12:51 | Discharge Summary ---
Medical - DS: Prov Patient information: Note initiated : 06/15/19 at 12:50 pm Service Date, if different from initiated Date: [] Patient: Eliseo Fairchild 79 y/o M admitted on 06/13/19 for Swelling in legs. Chief Complaint: [] Date of admission: 06/13/19 22:44 Discharge date: 06/16/19 Primary care physician: Elijah Trujillo MD Consults: 06/13/19 Consult to Physician [CONS] Stat Comment: Consulting Provider: Ge Mccauley Reason For Exam: Physician to Consult Consult to Physician [CONS] Stat Comment: Consulting Provider: Swetha Orozco Reason For Exam: Physician to Consult Medical - DS: Meds - Discharge Medications Prescriptions: Doxazosin [Cardura] 2 mg PO QHS #30 tab Warfarin [Coumadin] 2.5 mg PO DAILY #30 tablet Active and Home Medications: Home Medications cholecalciferol (vitamin D3) 2,000 unit capsule 4,000 unit PO QDAY #90 cap 06/04/18 [Rx Confirmed 06/13/19 Last Taken Unknown] warfarin 4 mg tablet 4 mg PO QDAY #90 tab 06/04/18 [Rx Confirmed 06/13/19 Last Taken Unknown] atorvastatin 10 mg tablet 10 mg PO QDAY #90 tab 06/14/18 [Rx Confirmed 06/13/19 Last Taken Unknown] doxazosin 1 mg tablet 1 mg PO QHS #90 tab 06/14/18 [Rx Confirmed 06/13/19 Last Taken Unknown] losartan 25 mg tablet 25 mg PO QDAY #90 tab 06/14/18 [Rx Confirmed 06/13/19 Last Taken Unknown] amlodipine 5 mg tablet 5 mg PO QDAY 01/23/19 [History Confirmed 06/13/19 Last Taken Unknown] furosemide 20 mg tablet 40 mg PO QDAY 01/23/19 [History Confirmed 06/13/19 Last Taken Unknown] Cyclobenzaprine [Flexeril] 10 mg PO TID #30 tab 06/07/19 [Rx Confirmed 06/13/19 Last Taken Unknown] oxyCODONE HCL [Roxicodone] 5 mg PO Q4HP PRN #30 tab 06/07/19 [Rx Confirmed 06/13/19 Last Taken Unknown] Amiodarone HCl [Pacerone] 100 mg PO QAC 06/13/19 [History Confirmed 06/14/19 Last Taken Unknown] Home Medications cholecalciferol (vitamin D3) 2,000 unit capsule 4,000 unit PO QDAY #90 cap 06/04/18 [Rx Confirmed 06/13/19 Last Taken Unknown] atorvastatin 10 mg tablet 10 mg PO QDAY #90 tab 06/14/18 [Rx Confirmed 06/13/19 Last Taken Unknown] losartan 25 mg tablet 25 mg PO QDAY #90 tab 06/14/18 [Rx Confirmed 06/13/19 Last Taken Unknown] amlodipine 5 mg tablet 5 mg PO QDAY 01/23/19 [History Confirmed 06/13/19 Last Taken Unknown] furosemide 20 mg tablet 40 mg PO QDAY 01/23/19 [History Confirmed 06/13/19 Last Taken Unknown] Cyclobenzaprine [Flexeril] 10 mg PO TID #30 tab 06/07/19 [Rx Confirmed 06/13/19 Last Taken Unknown] oxyCODONE HCL [Roxicodone] 5 mg PO Q4HP PRN #30 tab 06/07/19 [Rx Confirmed 06/13/19 Last Taken Unknown] Amiodarone HCl [Pacerone] 100 mg PO QAMCC 06/13/19 [History Confirmed 06/14/19 Last Taken Unknown] Doxazosin [Cardura] 2 mg PO QHS #30 tablet 06/15/19 [Rx Last Taken Unknown] Warfarin [Coumadin] 3 mg PO DAILY #30 tablet 06/15/19 [Rx Last Taken Unknown] Medical - DS: Hosp Hospital Course: Mr. Fairchild is a 79 year old M with a known history of chronic kidney disease/atrial fibrillation on anticoagulation presents to the ER with 5 days onset of inability to urinate along with associated nausea weight gain and lower extremity swelling. Patient endorses to a feeling of abdominal fullness and has not able to void over the last 48 hours. Symptoms has been progressing over the last month. Patient denies abdominal pain, fever or chills or bloody urine. He denies weight loss. Subsequently presents to the ER. Initial work-up was consistent with acute renal failure with a creatinine 4.4 and a BUN of 1 21. Nephrology was consulted excessively hospitalist service was requested for admission. . He denies active distress. Layne's catheter was placed With over 1000 cc urine output. At the time of evaluation patient is alert and oriented, he was able to answer most of the question and endorsed history as above. He denies recent urological procedure. He denies changes in medications. He denies NSAID intake 06/14-patient doing well. Diuresing well. Nephrology on board. Denies shortness of breath. Low risk lymphedema much improved. No overnight fever chills or concerns per staff. INR therapeutic at 3.8. Creatinine downtrending 3.9 06/15 Accidentally pulled Layne out this morning. Has not voided in the last 4 hours since Layne pulled. Bladder scan for greater than 200. Was agitated this morning and want to go home. Otherwise no overnight events. No new complaints. His son reports dementia-like symptoms that have been progressing over the past year. 06/16 No complaints doing well. Did well overnight. Stable for discharge with son. Discharge diagnosis: Acute renal failure obstructive uropathy coagulopathy Secondary discharge diagnosis: H fibrillation hypertension chronic pain history of spinal stenosis dementia - Time Spent with Patient Total time spent providing and/or coordinating discharge services: Greater than 30 minutes Medical - DS: Exam - Constitutional Vitals: Vital Signs Temp Pulse Resp BP Pulse Ox 06/15/19 12:00 97.3 F 20 132/63 98 06/15/19 08:00 97.9 F 20 107/63 96 06/15/19 04:00 98 F 48 L 16 120/58 94 06/14/19 23:28 98.2 F 57 L 20 128/60 96 06/14/19 18:40 58 L 92 06/14/19 18:38 98.1 F 55 L 16 120/49 94 06/14/19 16:00 97.9 F 64 19 119/68 94 Intake and Output 06/14/19 06/15/19 06/15/19 21:59 05:59 13:59 Intake Total 390 400 Output Total 1325 800 300 Balance -1325 -410 100 Intake: Oral 390 400 Output: Urine Catheter Amount 1325 800 300 Other: Meal Dinner Breakfast Percent of Meal Consumed 50% 25% Feeding Ability Independent Urine Appearance Clear Hematuria Clear Uretheral (Layne) Clear Clear Urine Color Light Valentina Light Valentina Pale Uretheral (Layne) Light Valentina Pale Urine Odor Normal Uretheral (Layne) Normal Stool Size Moderate Small Stool Color Brown Brown Stool Consistency Normal for Patient Normal for Patient Weight 73.573 kg Medical - DS: Data Labs on day of discharge: Labs from last 24 hours 06/15/19 06/15/19 06/15/19 04:05 04:05 04:05 WBC 5.6 RBC 3.50 L Hgb 10.9 L Hct 31.8 L MCV 90.8 MCH 31.1 MCHC 34.3 RDW 13.1 Plt Count 229 MPV 8.2 Total Counted 100 Seg Neutrophils % 78 Band Neutrophils % Not Reportable Lymphocytes % 11 L Monocytes % (Manual) 7 Eosinophils % (Manual) 4 Platelet Estimate Normal RBC Morphology Normal PT 29.0 H INR 2.8 H Sodium 139 Potassium 3.9 Chloride 103 Carbon Dioxide 24 Anion Gap 12.0 BUN 78 H Creatinine 2.4 H GFR Calculation 24 Glucose 104 Uric Acid 15.4 H Calcium 8.7 Phosphorus 3.8 Magnesium 2.6 H Total Bilirubin 0.4 Direct Bilirubin < 0.2 GGT 12 AST 18 ALT 36 Alkaline Phosphatase 70 Lactate Dehydrogenase 409 H Total Protein 6.5 Albumin 2.9 L Globulin 3.6 Albumin/Globulin Ratio 0.8 L Triglycerides 64 Medical - DS: A/P - Patient/Caregiver Discharge Instructions Activity: as per physical therapy Diet: Regular Diet Prescriptions: Doxazosin [Cardura] 2 mg PO QHS #30 tab Warfarin [Coumadin] 3 mg PO DAILY #30 tab Other Amb Orders: Prothrombin Time INR Time Frame: 2 Days, Location: None Selected - Follow up Plan Follow up with: David Khalil MD [Physician] - (Your previous appointment was canceled; Please call to reschedule if you feel you need to.) Elijah Trujillo MD [Primary Care Provider] - Jacob Thomason MD [Physician] - (obstructive uropathy. h/o BPH) Kimi Martinez MD [Physician] - Disposition: Home, Self-Care Prognosis: Fair Rehab Potential: Fair Overall status at discharge: patient is progressing back to baseline Medical - DS: Qual - VTE Deep Vein Thrombosis/Pulmonary Embolism Present on Admission: No
--- NOTE | 2019-06-15 13:34 | Nephrology Progress Note ---
Subjective Patient information: Note initiated : 06/15/19 at 1:31 pm Service Date, if different from initiated Date: [] Patient: Eliseo Fairchild 79 y/o M admitted on 06/13/19 for Swelling in legs. Chief Complaint: [] Principal diagnosis: Obstructive uropathy with ARF Interval history: Improving GFR with IVF and franklin. Franklin replaced. Need to maximize use of cardura as treatment for BPH/obstructive uropathy - already done. Need to stop Narcotics and use acetaminophen only. No NSAIDS due to obstruction. Spoke with family and update given Patient has no new issues Pertinent ROS: Termporally related narcotic Rx for neck pain and LUTS / obstruction. Additional PMFSH (Level 3 Only): No hx of Urinary retention prior to narcotics Objective - Vital Signs Vital signs: Vital Signs Temp Pulse Resp BP Pulse Ox 06/15/19 12:00 97.3 F 20 132/63 98 06/15/19 08:00 97.9 F 20 107/63 96 06/15/19 04:00 98 F 48 L 16 120/58 94 06/14/19 23:28 98.2 F 57 L 20 128/60 96 06/14/19 18:40 58 L 92 06/14/19 18:38 98.1 F 55 L 16 120/49 94 06/14/19 16:00 97.9 F 64 19 119/68 94 Intake and Output 06/14/19 06/15/19 06/15/19 21:59 05:59 13:59 Intake Total 390 400 Output Total 1325 800 300 Balance -1325 -410 100 Intake: Oral 390 400 Output: Urine Catheter Amount 1325 800 300 Other: Meal Dinner Breakfast Percent of Meal Consumed 50% 25% Feeding Ability Independent Urine Appearance Clear Hematuria Clear Uretheral (Franklin) Clear Clear Urine Color Light Valentina Light Valentina Pale Uretheral (Franklin) Light Valentina Pale Urine Odor Normal Uretheral (Franklin) Normal Stool Size Moderate Small Stool Color Brown Brown Stool Consistency Normal for Patient Normal for Patient Weight 162 lb 3.2 oz Intake & Output: Intake & Output 06/14/19 06/15/19 06/15/19 21:59 05:59 13:59 Intake Total 390 400 Output Total 1325 800 300 Balance -1325 -410 100 Weight 162 lb 3.2 oz Intake: Oral 390 400 Output: Urine Catheter Amount 1325 800 300 Other: Meal Dinner Breakfast Percent of Meal Consumed 50% 25% Feeding Ability Independent Urine Appearance Clear Hematuria Clear Uretheral (Franklin) Clear Clear Urine Color Light Valentina Light Valentina Pale Uretheral (Franklin) Light Valentina Pale Urine Odor Normal Uretheral (Franklin) Normal Stool Size Moderate Small Stool Color Brown Brown Stool Consistency Normal for Patient Normal for Patient - General Appearance General appearance: appears started age, frail EENT: ATNC, PERRL, mucous membranes dry Neck: no JVD, no thyromegaly Respiratory: no kyphosis Cardiology: no murmurs, no rub, no edema Gastrointestinal: normoactive bowel sounds, no tenderness, no guarding Integumentary: no rash, rash, warm and dry Neurologic: no focal deficit, no asterixis, CN 3-12 intact Musculoskeletal: no deformities, no erythema, no cyanosis Psychiatric: agitated - Lab 06/16/19 04:12 06/16/19 04:12 Most recent lab results Calcium 8.7 mg/dl (8.6-10.4) 06/15/19 04:05 Phosphorus 3.8 mg/dL (2.7-4.5) 06/15/19 04:05 Magnesium 2.6 mg/dL (1.6-2.5) H 06/15/19 04:05 - Imaging Kidney/bladder ultrasound: report reviewed - Allied health notes Allied health notes reviewed: nursing Assessment and Plan (1) Lower obstructive uropathy Stop all narcotics Increase cardura Franklin may be needed at discharge but if he was voiding normally before oxycontin, then he probably will in 24 hours Voiding trial tomorrow if not d/c with follow up urology Status: Acute Priority: High (2) Acute kidney injury superimposed on CKD Improving with franklin Emmanuel argues for an element of prerenal azotemia as does the disproportionate rise in his BUN relative to creatinine Keep hydrated Will need follow up with Dr Martinez and associates post discharge Status: Acute Priority: High (3) Atrial fibrillation with RVR Correct / do not let HgB < 10 gm/dl Monitor for more bradycardia while on amiodarone Low HR leads to decreased renal perfusion and may have contributed to ARF Status: Chronic Priority: Medium (4) CKD (chronic kidney disease) stage 3, GFR 30-59 ml/min 1. Baseline creatinine 1.8-2.0 mg/dl 2. Likely HTN nephrosclerosis with 2018 U/S showing increased echogenicity 3. Goal BP 130/80 at discharge 4. Follow up with Dr Fischer Status: Chronic Priority: Medium
[2019-06-15] MEDS ORDERED: WARFARIN 2 MG TABLET PO ONE (14:00)
[2019-06-15] MEDS: ACETAMINOPHEN 500 MG TABLET PO SCH ×2 (15:06→21:12)
[2019-06-15] MEDS ORDERED: LIDOCAINE 5% OINT TUBE 35GM TOPICAL SCH (21:00)
[2019-06-15] MEDS ORDERED: DOXAZOSIN 1 MG TABLET PO SCH (21:00)
[2019-06-15] MEDS: SENNOSIDES/DOCUSATE SODIUM 1 TAB TABLET PO SCH (21:07)
[2019-06-16] MEDS: 0.9 % SODIUM CHLORIDE 10 ML SYRINGE IV SCH (06:04)
[2019-06-16] MEDS: ACETAMINOPHEN 500 MG TABLET PO SCH (06:04)
[2019-06-16 06:10] LABS: Basophils # (Auto) 0 K/mcL (0.0-0.3); Basophils % (Auto) 0.3 % (0.0-2.0); Eosinophils # (Auto) 0.3 K/mcL (0.0-0.7); Eosinophils % (Auto) 5.1 % (0.0-7.0); Granulocytes % (Auto) 65.5 % (38.0-78.0); Hematocrit 35.4 % (41.0-55.0); Hemoglobin 11.9 g/dL (13.5-16.5); Lymphocytes % (Auto) 18.9 % (15.5-49.0); Mean Cell Volume 91.4 fL (80.0-100.0); Mean Corpuscular HGB Conc 33.5 g/dL (31.0-36.0); Monocytes # (Auto) 0.5 K/mcL (0.1-0.9); Monocytes % (Auto) 10.2 % (1.0-12.0); Platelet Count 244 K/mcL (140-440); RBC 3.87 M/mcL (4.50-5.90); Red Cell Distribution Width 12.9 % (11.5-14.5); WBC 5.3 K/mcL (4.5-11.0)
[2019-06-16 06:16] LABS: ALT/SGPT 31 U/l (0-40); AST/SGOT 18 U/l (0-37); Albumin/Globulin Ratio 0.9 (1.0-2.3); Alkaline Phosphatase 68 U/L (39-117); Bilirubin,Direct < 0.2 mg/dL (0.0-0.3); Bilirubin,Total 0.4 mg/dL (0.0-1.0); Blood Urea Nitrogen 48 mg/dl (8-23); Calcium 8.8 mg/dl (8.6-10.4); Carbon Dioxide 22 mmol/L (22-30); Chloride 107 mmol/L (96-108); Globulin 3.5 gm/dL (2.2-3.7); Glomerular Filtration Rate 37; Glucose 89 mg/dL (70-105); Lactate Dehydrogenase 369 U/L (94-250); Phosphorous 2.4 mg/dL (2.7-4.5); Triglycerides 65 mg/dl (<150); Uric Acid 12.6 mg/dL (2.5-8.0)
[2019-06-16 06:17] LABS: Iron 63 mcg/dl (61-157); TIBC Calculation 169 ug/dl (228-428); Transferrin % Saturation 37 % (20-50)
[2019-06-16 06:20] LABS: INR 3.1 (0.9-1.1); Prothrombin Time 31.2 sec (11.9-14.5)
[2019-06-16] MEDS: AMIODARONE HCL 200 MG TABLET PO SCH (08:06)
--- NOTE | 2019-06-16 08:10 | Internal Med Progress Note ---
Medical - PN: Subj Patient information: Note initiated : 06/16/19 at 8:06 am Service Date, if different from initiated Date: [] Patient: Eliseo Fairchild 79 y/o M admitted on 06/13/19 for Swelling in legs. Chief Complaint: [] Interval history: Mr. Fairchild is a 79 year old M with a known history of chronic kidney dise ase/atrial fibrillation on anticoagulation presents to the ER with 5 days onset of inability to urinate along with associated nausea weight gain and lower extremity swelling. Patient endorses to a feeling of abdominal fullness and has not able to void over the last 48 hours. Symptoms has been progressing over the last month. Patient denies abdominal pain, fever or chills or bloody urine. He denies weight loss. Subsequently presents to the ER. Initial work-up was consistent with acute renal failure with a creatinine 4.4 and a BUN of 1 21. Nephrology was consulted excessively hospitalist service was requested for admission. . He denies active distress. Layne's catheter was placed With over 1000 cc urine output. At the time of evaluation patient is alert and oriented, he was able to answer most of the question and endorsed history as above. He denies recent urological procedure. He denies changes in medications. He denies NSAID intake 06/14-patient doing well. Diuresing well. Nephrology on board. Denies shortness of breath. Low risk lymphedema much improved. No overnight fever chills or concerns per staff. INR therapeutic at 3.8. Creatinine downtrending 3.9 06/15 Accidentally pulled Layne out this morning. Has not voided in the last 4 hours since Layne pulled. Bladder scan for greater than 200. Was agitated this morning and want to go home. Otherwise no overnight events. No new complaints. His son reports dementia-like symptoms that have been progressing over the past year. 06/16 No complaints doing well. Did well overnight. Review of Systems: denies headache/fever/chills/nausea/vomiting/chest or abdominal pain/cough/dyspnea/diarrhea. Otherwise see above. - Constitutional Vitals: Vital Signs Temp Pulse Resp BP Pulse Ox 97.9 F 62 16 133/70 95 06/16/19 04:00 06/16/19 04:00 06/16/19 04:00 06/16/19 04:00 06/15/19 16:00 Period Temp Pulse Resp BP Sys/Nicholson Pulse Ox Last 24 Hr 97.3 F-98.3 F 61-88 16-20 131-145/63-73 95-98 Intake and Output 06/15/19 06/16/19 06/16/19 21:59 05:59 13:59 Intake Total 1040 450 Output Total 950 850 Balance 90 -400 Weight 73.527 kg Intake & Output: Intake & Output 06/15/19 06/16/19 06/16/19 21:59 05:59 13:59 Intake Total 1040 450 Output Total 950 850 Balance 90 -400 Weight 73.527 kg Intake: Oral 1040 450 Output: Urine Catheter Amount 950 850 Other: Meal Nourishment/Supplement Percent of Meal Consumed 100% Feeding Ability Assist with Tray Set Up Urine Appearance Clear Clear Uretheral (Layne) Clear Clear Urine Color Straw Pale Straw Uretheral (Layne) Pale Pale Straw Straw Urine Odor Normal Normal Uretheral (Layne) Normal Normal Exam: General: Alert, Awake, No acute Distress Eyes/N/T: EOMI, Head/Neck: neck supple, CV: RRR, No murmurs, Pulm: Clear b/l, no wheezing/rhonchi/rales Abd: soft, nontender, +BS x4 Ext: no clubbing/cyanosis, b/l LE edema Neuro: Alert, no focal deficits, moves all extremities, Skin: warm/dry Medical - PN: Obj Da - Labs CBC & Chem 7: 06/16/19 04:12 06/16/19 04:12 Labs: Abnormal Lab Results 06/16/19 06/16/19 06/16/19 04:12 04:12 04:12 RBC 3.87 L Hgb 11.9 L Hct 35.4 L POC Hct Lymph % (Auto) Lymph # (Auto) 1.0 L Lymphocytes % Absolute Retic 2.0 H PT 31.2 H INR 3.1 H Sodium Chloride Carbon Dioxide POC Total CO2 Anion Gap POC BUN BUN Creatinine POC Creatinine Glucose POC Glucose Uric Acid Calcium POC WB Ioniz Calcium Phosphorus Magnesium TIBC 169 L Unsat Iron Binding 106 L ALT Lactate Dehydrogenase Troponin T NT-Pro-B Natriuret Pep Albumin Globulin Albumin/Globulin Ratio 06/16/19 06/15/19 06/15/19 04:12 04:05 04:05 RBC Hgb Hct POC Hct Lymph % (Auto) Lymph # (Auto) Lymphocytes % Absolute Retic PT 29.0 H INR 2.8 H Sodium Chloride Carbon Dioxide POC Total CO2 Anion Gap POC BUN BUN 48 H 78 H Creatinine 1.7 H 2.4 H POC Creatinine Glucose POC Glucose Uric Acid 12.6 H 15.4 H Calcium POC WB Ioniz Calcium Phosphorus 2.4 L Magnesium 2.6 H TIBC Unsat Iron Binding ALT Lactate Dehydrogenase 369 H 409 H Troponin T NT-Pro-B Natriuret Pep Albumin 3.0 L 2.9 L Globulin Albumin/Globulin Ratio 0.9 L 0.8 L 06/15/19 06/14/19 06/14/19 04:05 07:25 03:25 RBC 3.50 L Hgb 10.9 L Hct 31.8 L POC Hct Lymph % (Auto) Lymph # (Auto) Lymphocytes % 11 L Absolute Retic PT 37.2 H INR 3.8 H Sodium Chloride Carbon Dioxide 20 L POC Total CO2 Anion Gap 18.0 H POC BUN BUN 102 H* Creatinine 3.9 H POC Creatinine Glucose POC Glucose Uric Acid 17.5 H Calcium 8.5 L POC WB Ioniz Calcium Phosphorus 5.2 H Magnesium 2.6 H TIBC Unsat Iron Binding ALT 45 H Lactate Dehydrogenase 486 H Troponin T NT-Pro-B Natriuret Pep Albumin 3.0 L Globulin Albumin/Globulin Ratio 0.8 L 06/14/19 06/13/19 06/13/19 03:25 19:34 19:34 RBC 3.56 L Hgb 11.1 L Hct 32.7 L POC Hct 33.0 L Lymph % (Auto) Lymph # (Auto) Lymphocytes % 7 L Absolute Retic PT INR Sodium 132 L Chloride 93 L Carbon Dioxide 19 L POC Total CO2 21 L Anion Gap 20.0 H POC BUN 121 H* BUN 107 H* Creatinine 4.4 H POC Creatinine 5.1 H Glucose 109 H POC Glucose 113 H Uric Acid Calcium POC WB Ioniz Calcium 1.10 L Phosphorus Magnesium 2.7 H TIBC Unsat Iron Binding ALT 55 H Lactate Dehydrogenase Troponin T 0.06 H* NT-Pro-B Natriuret Pep 464.7 H Albumin Globulin 3.8 H Albumin/Globulin Ratio 0.9 L 06/13/19 19:34 RBC 3.69 L Hgb 11.4 L Hct 33.7 L POC Hct Lymph % (Auto) 10.6 L Lymph # (Auto) 0.8 L Lymphocytes % Absolute Retic PT INR Sodium Chloride Carbon Dioxide POC Total CO2 Anion Gap POC BUN BUN Creatinine POC Creatinine Glucose POC Glucose Uric Acid Calcium POC WB Ioniz Calcium Phosphorus Magnesium TIBC Unsat Iron Binding ALT Lactate Dehydrogenase Troponin T NT-Pro-B Natriuret Pep Albumin Globulin Albumin/Globulin Ratio Meds: Medications Acetaminophen (Tylenol) 1,000 mg PO Q8 [facility] Last Admin: 06/16/19 06:04 Dose: 1,000 mg Documented by: Amiodarone HCl (Cordarone) 100 mg PO QAMCC [facility] Last Admin: 06/15/19 15:09 Dose: Not Given Documented by: Amlodipine Besylate (Norvasc) 5 mg PO QDAY [facility] Last Admin: 06/15/19 08:47 Dose: 5 mg Documented by: Atorvastatin Calcium (Lipitor) 10 mg PO QDAY [facility] Last Admin: 06/15/19 08:47 Dose: 10 mg Documented by: Cyclobenzaprine HCl (Flexeril) 10 mg PO TID [facility] Last Admin: 06/15/19 21:07 Dose: 10 mg Documented by: Docusate Sodium (Colace) 100 mg PO BID [facility] Last Admin: 06/15/19 21:07 Dose: 100 mg Documented by: Doxazosin Mesylate (Cardura) 2 mg PO QHS [facility] Last Admin: 06/15/19 21:07 Dose: 2 mg Documented by: Iron Carb/Multivit/Turbine Room Attendant/Folic Acid (Multivitamin W/Minerals) 1 tab PO DAILY [facility] Last Admin: 06/15/19 09:43 Dose: 1 tab Documented by: Lidocaine (Lidocaine 5% Oint) 1 dose TOPICAL QHS [facility] Last Admin: 06/15/19 21:08 Dose: Not Given Documented by: Melatonin (Melatonin 3mg Tablet) 3 mg PO HSP PRN PRN Reason: Insomnia Last Admin: 06/15/19 01:45 Dose: 3 mg Documented by: Ondansetron HCl (Zofran) 4 mg IV Q4-6HP PRN PRN Reason: Nausea And Vomiting Senna/Docusate Sodium (Senna Plus Tablet) 1 tab PO [facility] Last Admin: 06/15/19 21:07 Dose: 1 tab Documented by: Sodium Chloride (Saline Flush) 10 ml IV Q8 [facility] Last Admin: 06/16/19 06:04 Dose: 10 ml Documented by: Warfarin Sodium (Coumadin Per Pharmacy) 1 order PO UD [facility] Medical - PN: A/P - Time Spent With Patient Total time spent is greater than 50% in coordination of care (as documented) at patient's floor/unit and/or counseling patient: - Narrative A/P Narrative: A: *SIMON on CKD IIIb: 2/2 obstructive uropathy. -Layne in place -Cr improving -renal ultrasound on acute path *Obstructive uropathy: Layne's catheter placement. Likely BPH. Will need urology consult on discharge. *Volume overload secondary to obstructive uropathy-will likely correct with postobstructive diuresis. *Atrial fibrillation: currently on home dose amiodarone and warfarin *Coagulopathy: 2/2 Coumadin. INR 3.8 on admit *HTN: on amlodipine/doxazosin/losartan *Chronic pain: continue on home dose oxycodone/cyclobenzaprine *h/o spinal stenosis-patient is scheduled to follow-up with spinal surgeon as outpatient. *Dementia: per family history Plan: -maintain Layne -Nephrology following -Urology follow-up as outpatient -cont home Amio -con home norvasc, -cont home Doxazosin(increased), -PT OT/nutrition support -Discharge planning per case management -ppx: warfarin per pharmacy DNR Medical - PN: Qual - VTE Deep Vein Thrombosis/Pulmonary Embolism Present on Admission: No
[2019-06-16] MEDS: DOCUSATE SODIUM 100 MG CAPSULE PO SCH (10:56)
[2019-06-16] MEDS: CYCLOBENZAPRINE 10 MG TABLET PO SCH (10:56)
[2019-06-16] MEDS: ATORVASTATIN 20 MG TABLET PO SCH (10:56)
[2019-06-16] MEDS: amLODIPine 5 MG TABLET PO SCH (10:56)
[2019-06-16] MEDS: MULTIVIT,THER IRON,CA,FA & MIN 1 TABLET PO SCH (10:56)
--- NOTE | 2019-06-16 12:25 | Nephrology Progress Note ---
Subjective Patient information: Note initiated : 06/16/19 at 12:21 pm Service Date, if different from initiated Date: [] Patient: Eliseo Fairchild 79 y/o M admitted on 06/13/19 for Swelling in legs. Chief Complaint: [Decreased urination] Principal diagnosis: Obstructive uropathy with ARF Interval history: ARF on CKD is improving with franklin and volume. Baseline SCr about 1.8 mg/dl in setting of HTN and hyperuricemia. Followed by Dr Martinez. SCr 1.7 this AM Bradycardia with sinus mechanism on 100 mg amiodarone Anemia has stabalized (hemoconcentration with hydration + acute drop of HgB w/o blood losss). Iron stores acceptable. Metabolic acidosis with obstruction resolved Trial of voiding as no oxycontin in > 24 hours and no hx of urinary retention in the past Pertinent ROS: Nothing new escept heart rate always low Additional PMFSH (Level 3 Only): Bradycardia on amiodarone Objective - Vital Signs Vital signs: Vital Signs Temp Pulse Pulse Resp BP BP Pulse Ox 06/16/19 08:00 98.4 F 20 138/69 94 06/16/19 04:00 97.9 F 62 16 133/70 06/16/19 00:00 97.7 F 61 16 145/72 06/15/19 20:00 98.3 F 88 18 131/72 06/15/19 16:00 97.7 F 20 144/73 95 Intake and Output 06/15/19 06/16/19 06/16/19 21:59 05:59 13:59 Intake Total 1040 450 Output Total 950 850 Balance 90 -400 Intake: Oral 1040 450 Output: Urine Catheter Amount 950 850 Other: Meal Nourishment/Supplement Breakfast Percent of Meal Consumed 100% 75% Feeding Ability Assist with Tray Set Up Independent Urine Appearance Clear Clear Uretheral (Franklin) Clear Clear Clear Urine Color Straw Pale Straw Uretheral (Franklin) Pale Pale Pale Straw Straw Straw Urine Odor Normal Normal Uretheral (Franklin) Normal Normal Weight 162 lb 1.6 oz Intake & Output: Intake & Output 06/15/19 06/16/19 06/16/19 21:59 05:59 13:59 Intake Total 1040 450 Output Total 950 850 Balance 90 -400 Weight 162 lb 1.6 oz Intake: Oral 1040 450 Output: Urine Catheter Amount 950 850 Other: Meal Nourishment/Supplement Breakfast Percent of Meal Consumed 100% 75% Feeding Ability Assist with Tray Set Up Independent Urine Appearance Clear Clear Uretheral (Franklin) Clear Clear Clear Urine Color Straw Pale Straw Uretheral (Franklin) Pale Pale Pale Straw Straw Straw Urine Odor Normal Normal Uretheral (Franklin) Normal Normal - General Appearance General appearance: appears started age (no acute distress) EENT: ATNC, PERRL, mucous membranes moist Neck: no JVD, no thyromegaly, no carotid bruit Respiratory: no kyphosis, clear Cardiology: no murmurs, no edema, regular rate (Crispin off and on with sinus mech anism), regular rhythm, normal S1, normal S2 Gastrointestinal: normoactive bowel sounds, no tenderness, no organomegaly, no masses Integumentary: no rash, warm and dry Neurologic: no focal deficit, no asterixis, alert and oriented x3, CN 3-12 intact Musculoskeletal: no deformities, no erythema, no cyanosis, no clubbing Psychiatric: mood/affect appropriate, cooperative - Lab 06/16/19 04:12 06/16/19 04:12 Most recent lab results Calcium 8.8 mg/dl (8.6-10.4) 06/16/19 04:12 Phosphorus 2.4 mg/dL (2.7-4.5) L 06/16/19 04:12 Magnesium 2.2 mg/dL (1.6-2.5) 06/16/19 04:12 - Imaging Kidney/bladder ultrasound: image reviewed Assessment and Plan (1) Lower obstructive uropathy Stop all narcotics Increase cardura Franklin may be needed at discharge but if he was voiding normally before oxycontin, then he probably will in 24 hours Voiding trial tomorrow if not d/c with follow up urology Voiding trial before discharge or home with franklin Status: Acute Priority: High (2) Acute kidney injury superimposed on CKD Improving with franklin..Back to baseline FeNa argues for an element of prerenal azotemia as does the disproportionate rise in his BUN relative to creatinine Keep hydrated Will need follow up with Dr Martinez and associates post discharge Status: Acute Priority: High (3) Atrial fibrillation with RVR Correct / do not let HgB < 10 gm/dl Monitor for more bradycardia while on amiodarone Low HR leads to decreased renal perfusion and may have contributed to ARF Stable today Status: Chronic Priority: Medium (4) CKD (chronic kidney disease) stage 3, GFR 30-59 ml/min 1. Baseline creatinine 1.8-2.0 mg/dl...currenly back to that level 2. Likely HTN nephrosclerosis with 2018 U/S showing increased echogenicity 3. Goal BP 130/80 at discharge 4. Follow up with Dr Fischer Status: Chronic Priority: Medium
[2019-06-16] MEDS ORDERED: DOXAZOSIN 4 MG TABLET PO SCH (21:00)
== END 2019-06-16 14:36 | disposition home or self-care (01) | DRG 684 ==
LOC: ED 18:56 → ICU 22:44 → MEDSUR 06-15 05:30
PROVIDERS: ADMIT Internal Medicine; ATTEND Internal Medicine